=== PATIENT | male | born 1975 | race Caucasian/White ===

== ENCOUNTER 2019-09-14 09:12 | Day surgery (SDC) | payer MEDICAID ==
[~2019-09-14] VITALS: Ht 177.8 cm; Wt 109.1 kg
[2019-09-14 09:44] LABS: CALC OSMOLALITY 273 mosm/kg (275-300); CALCIUM 8.8 mg/dL (8.5-10.1); CARBON DIOXIDE 29.5 mmol/L (21.0-32.0); CHLORIDE - SERUM 102 mmol/L (98-107); CREATININE - SERUM 0.8 mg/dL (0.6-1.3); GLUCOSE 91 mg/dL (74-106); POTASSIUM - SERUM 4.9 mmol/L (3.5-5.1); SODIUM 136 mmol/L (136-145); UREA NITROGEN 18 mg/dL (7-18); eGFR NON AFRICAN AMERICAN > 90 mL/min (90-120)
[2019-09-14 09:48] LABS: BASOPHILS 0.7 % (0-2); EOSINOPHILS 4.4 % (0-7); HEMATOCRIT 43.5 % (42.0-54.0); HEMOGLOBIN 14.9 g/dL (13.5-17.5); IMMATURE GRANULOCYTES 1.5 % (0-5); LYMPHOCYTES 24.6 % (15-50); MCH 32.3 pg (26.0-34.0); MCHC 34.3 g/dL (31.0-37.0); MCV 94.2 fL (80.0-100.0); MEAN PLATELET VOLUME 9.6 fL (7.4-10.4); MONOCYTES 12.5 % (2-11); NEUTROPHILS 56.3 % (40-80); PLATELET COUNT 157 10x3/uL (130-400); RBC 4.62 10x6/uL (4.20-6.10); RDW 13.6 % (11.5-14.5); WBC 5.9 10x3/uL (4.8-10.8)
[2019-09-14] MEDS ORDERED: PROZAC40 MG PO (09:57)
[2019-09-14] MEDS ORDERED: BENICAR20 MG PO (09:57)
[2019-09-14] MEDS ORDERED: ULTRAM50 MG PO (09:58)
[2019-09-14 10:13] VITALS: BP 135/72; Ht 177.8 cm; Wt 109.1 kg
--- NOTE | 2019-09-14 11:37 | NUR ---
1130-DR MIN IN TO REPORT FINDINGS. 1135-DISCHARGE INSTRUCTIONS REVIEWED. IV D/C AND DRESSED. 1140-DC HOME VIA [facility] WITH GIRLFRIEND.
--- NOTE | 2019-09-16 11:26 | OP ---
PATIENT NAME: CECE MCGOWAN MEDICAL RECORD: [id number] :71 LOCATION:[facility] ADMISSION DATE: SURGEON: DUNCAN MIN DO DATE OF OPERATION: 09/14/2019 PROCEDURE: EGD with biopsies. INDICATIONS FOR PROCEDURE: Abnormal imaging of the liver with possible cirrhosis being seen in paraesophageal varices. The patient also has had some right upper quadrant abdominal pain. SCOPE: Olympus video gastroscope. MEDICATIONS: Propofol 700 mg IV per anesthesia. ESTIMATED BLOOD LOSS: Minimal. COMPLICATIONS: None. FINDINGS AND DESCRIPTION OF PROCEDURE: Informed consent was given. The patient was made comfortable with the above medication. After reaching an adequate level of sedation by slow IV push, the patient was placed on his left side. The endoscope was advanced under direct visualization through the mouth to the second portion of the duodenum. The upper esophagus appeared normal. In the middle and distal thirds of the esophagus, there were grade I to grade II esophageal varices without bleeding stigmata. No interventions were performed on these varices today. At the GE junction, there was evidence of LA class A reflux-induced esophagitis. The endoscope was advanced beyond the GE junction into the stomach and retroflexed to view the cardia and fundus, which appeared normal. Throughout the body of the stomach as well as the antrum and prepyloric regions, there were multiple patchy areas of erythema and granularity and some congestion consistent with mild chronic gastritis. Cold forceps biopsies were taken from the antrum and incisura to submit for histopathology and to rule out the presence of H. pylori. The endoscope was advanced beyond the pylorus into the duodenum, which revealed some erythema, granularity, and ulcerations. Cold forceps biopsies were taken to submit for histopathology. The endoscope was withdrawn from the patient. The patient tolerated the procedure well and there were no complications. IMPRESSION: 1. Grade I to grade II esophageal varices without bleeding stigmata. 2. LA class A reflux-induced esophagitis. 3. Gastritis. 4. Duodenitis. PLAN AND RECOMMENDATIONS: 1. Discharge home when recovery parameters are met. 2. Follow up biopsy specimen results. 3. GERD diet and reflux precautions. 4. Continue current medications including pantoprazole 40 mg daily. 5. Follow up in GI clinic as scheduled for every 6-month, screening of the liver with imaging. 6. Repeat EGD in 1 year for surveillance of esophageal varices. TRANSINT:[id number] Voice Confirmation ID: [id number] DOCUMENT ID: [id number] OPERATIVE REPORT [id number] CECE MCGOWAN,DUNCAN Mcgraw DO at 1126 CC: [id number] DICTATION DATE: 09/14/19 1046 [employer]PORATE [employer]ATEGY ASSOCIATE: 09/14/19 1345 [facility] 09/14/19 [place] [id number]
== END 2019-09-14 11:40 | disposition home or self-care (01) ==
LOC: D.OPS 09:12
PROVIDERS: Anesthesiology; ATTEND Internal Medicine Gastroenterology
DX: R10.11 Right upper quadrant pain (principal); I85.00 Esophageal varices without bleeding; K21.0 Gastro-esophageal reflux disease with esophagitis; K29.70 Gastritis, unspecified, without bleeding

== ENCOUNTER 2019-10-17 23:36 | Emergency (ER) | payer MEDICAID ==
[~2019-10-17] VITALS: Ht 177.8 cm; Wt 108.6 kg
[~2019-10-17 23:36] MED LIST: BENICAR20 MG PO; PROZAC40 MG PO; ULTRAM50 MG PO
[2019-10-18] VITALS: Ht 177.8 cm; Wt 108.6 kg
[2019-10-18] MEDS ORDERED: PROTONIX40 MG (00:02)
[2019-10-18] MEDS ORDERED: LACTULOSE (00:02)
[2019-10-18 00:08] LABS: HEMATOCRIT 43.7 % (42.0-54.0); HEMOGLOBIN 14.5 g/dL (13.5-17.5); LYMPHOCYTES 29.8 % (15-50); MCHC 33.2 g/dL (31.0-37.0); MCV 93.4 fL (80.0-100.0); MEAN PLATELET VOLUME 9.1 fL (7.4-10.4); NEUTROPHILS 59.6 % (40-80); PLATELET COUNT 193 10x3/uL (130-400); RBC 4.68 10x6/uL (4.20-6.10); RDW 13.9 % (11.5-14.5)
[2019-10-18 00:13] LABS: BILIRUBIN NEGATIVE (NEGATIVE); GLUCOSE NEGATIVE (NEGATIVE); KETONE NEGATIVE (NEGATIVE); NITRITE NEGATIVE (NEGATIVE); UROBILINOGEN NORMAL (NORMAL)
[2019-10-18 00:16] LABS: ALBUMIN 4.4 g/dL (3.4-5.0); ALKALINE PHOSPHATASE 79 U/L (30-120); ALT (SGPT) 36 U/L (10-68); BILIRUBIN - TOTAL 0.41 mg/dL (0.2-1.3); CALC OSMOLALITY 277 mosm/kg (275-300); CALCIUM 8.7 mg/dL (8.5-10.1); CARBON DIOXIDE 27.8 mmol/L (21.0-32.0); CHLORIDE - SERUM 105 mmol/L (98-107); CREATININE - SERUM 0.8 mg/dL (0.6-1.3); GLUCOSE 95 mg/dL (74-106); MAGNESIUM - SERUM 2.4 mg/dL (1.8-2.4); POTASSIUM - SERUM 4.1 mmol/L (3.5-5.1); PROTEIN - SERUM 8.4 g/dL (6.4-8.2); SODIUM 140 mmol/L (136-145); UREA NITROGEN 10 mg/dL (7-18); eGFR NON AFRICAN AMERICAN > 90 mL/min (90-120)
[2019-10-18 00:21] LABS: UDS - AMPHET NEGATIVE QUAL (NEGATIVE); UDS - BARB NEGATIVE QUAL (NEGATIVE); UDS - BENZO NEGATIVE QUAL (NEGATIVE); UDS - COCAINE NEGATIVE QUAL (NEGATIVE); UDS - OPIATE NEGATIVE QUAL (NEGATIVE); UDS - PCP NEGATIVE QUAL (NEGATIVE); UDS - THC NEGATIVE QUAL (NEGATIVE)
[2019-10-18 12:30] VITALS: BP 122/62
== END 2019-10-18 12:30 ==
LOC: D.ER 23:36
PROVIDERS: Family Medicine
DX: R45.851 Suicidal ideations (principal); F10.10 Alcohol abuse, uncomplicated; Y90.8 Blood alcohol level of 240 mg/100 ml or more; F32.9 Major depressive disorder, single episode, unspecified; I10 Essential (primary) hypertension; K21.9 Gastro-esophageal reflux disease without esophagitis